=== PATIENT | male | born 1975 | race African-American/Black ===

== ENCOUNTER 2022-02-23 10:57 | Emergency (ER) | payer OTHER ==
[~2022-02-23] VITALS: Ht 172.7 cm; Wt 72.0 kg
[2022-02-23 11:00] VITALS: BP 110/74
== END 2022-02-23 11:52 | disposition left against medical advice (07) ==
LOC: ER 10:57 → EDBD 10:57 → ER 11:52
DX: Z53.21 Procedure and treatment not carried out due to patient leaving prior to being seen by health care provider (principal); I49.9 Cardiac arrhythmia, unspecified
CPT/HCPCS: 93005